=== PATIENT | female | born 1990 | race Native Hawaiian/Other Pacific Islander ===

== ENCOUNTER 2022-01-21 22:51 | Emergency (ER) | payer BC ==
[2022-01-21 23:14] VITALS: BP 128/78
--- NOTE | 2022-01-22 00:54 | XRay Report ---
Right foot 2 views INDICATION: Stabbing pain FINDINGS: MTP joints and IP joints appear normal. Calcaneus appears normal. Midfoot alignment appears normal. No acute findings. Signer Name: Guero Fry MD Signed: 01/22/2022 12:50 AM Workstation Name: [id number]
== END 2022-01-22 07:05 | disposition home or self-care (01) ==
LOC: ED 22:51
DX: M25.474 Effusion, right foot (principal); Z53.21 Procedure and treatment not carried out due to patient leaving prior to being seen by health care provider
CPT/HCPCS: 36415; 84703; 99283